=== PATIENT | female | born 1960 | race Caucasian/White ===

== ENCOUNTER 2024-07-06 13:30 | Emergency (ER) | payer SELFPAY ==
[2024-07-06] MEDS ORDERED: Acetaminophen 500 MG TAB ONE (15:24)
[2024-07-06 15:32] LABS: #Basophils 0.05 10x3/uL (0.0-0.2); %Basophils 1.1 % (0.0-1.0); %Eosinophils 2.2 % (0.0-10.0); %Lymphocytes 34.9 % (21.0-51.0); %Monocytes 8.1 % (0.0-10.0); %Neutrophils 53.5 % (42.0-75.0); Hematocrit 42.1 % (36.0-47.0); Hemoglobin 13.9 g/dL (12.0-16.0); Mean Corpuscular Hemoglobin 31.3 pg (27.0-31.0); Mean Corpuscular Volume 94.8 fL (78.0-98.0); Mean Platelet Volume 10.7 fL (7.4-10.4); Platelet Count 204 10x3/uL (130-400); RBC Distribution Width 12.8 % (11.5-14.5); Red Blood Cell (RBC) Count 4.44 mill/uL (4.20-5.40)
[2024-07-06 15:45] LABS: INR-International Normal Ratio 1.1; Prothrombin Time 13.8 sec (12.0-14.7)
[2024-07-06 15:46] LABS: PTT 33.8 sec (22.9-36.1)
[2024-07-06 16:01] LABS: CRP,High Sensitivity (Inhouse) 0.49 mg/dL (< or = 0.5)
[2024-07-06 16:02] LABS: ALT (SGPT) 31 U/L (8-55); AST (SGOT) 31 U/L (5-34); Albumin 3.8 g/dL (3.4-4.8); Alkaline Phosphatase 151 U/L (40-110); Anion Gap 14 mmol/L (10-20); BUN (Urea Nitrogen) 12 mg/dL (9.8-20.1); Bilirubin, Total 0.2 mg/dL (0.2-1.2); Calc. Creatinine Clearance 0 mL/min (70-130); Calcium 9.3 mg/dL (7.8-10.44); Carbon Dioxide 21 mmol/L (23-31); Chloride 110 mmol/L (98-107); Estimated GFR 75; Globulin 3.3 g/dL (2.4-3.5); Glucose 89 mg/dL (80-115); Potassium 4.5 mmol/L (3.5-5.1); Protein, Total 7.1 g/dL (5.8-8.1); Sodium 140 mmol/L (136-145)
[2024-07-06 16:07] LABS: Troponin I Less than 0.010 ng/mL (< 0.028)
== END 2024-07-06 17:27 | disposition home or self-care (01) ==
LOC: ERS 13:30
DX: G50.0 Trigeminal neuralgia (principal); Z55.6 Problems related to health literacy; Z87.891 Personal history of nicotine dependence
CPT/HCPCS: 36415; 70450; 70496; 70498; 80053; 84443; 84484; 85025; 85610; 85730; 86141; 93005

== ENCOUNTER 2025-04-10 13:42 | Emergency (ER) | payer OTHER ==
[2025-04-10] MEDS ORDERED: diphenhydrAMINE 50 MG/ML VIAL ONE (14:58)
[2025-04-10] MEDS ORDERED: Droperidol 5 MG/2 ML VIAL ONE (14:59)
[2025-04-10 16:18] LABS: #Basophils Less than 0.03 10x3/uL (0.0-0.2); #Eosinophils Less than 0.03 10x3/uL (0.0-0.7); #Monocytes 0.24 10x3/uL (0.11-0.59); #Neutrophils 7.98 10x3/uL (1.40-6.50); %Basophils 0.1 % (0.0-1.0); %Eosinophils 0.0 % (0.0-10.0); %Lymphocytes 10.5 % (21.0-51.0); %Monocytes 2.6 % (0.0-10.0); %Neutrophils 86.2 % (42.0-75.0); Hematocrit 42.7 % (36.0-47.0); Hemoglobin 14.4 g/dL (12.0-16.0); Mean Corpuscular Hemoglobin 31.6 pg (27.0-31.0); Mean Corpuscular Volume 93.6 fL (78.0-98.0); Platelet Count 286 10x3/uL (130-400); Red Blood Cell (RBC) Count 4.56 mill/uL (4.20-5.40); White Blood Cell (WBC) Count 9.26 10x3/uL (4.8-10.8)
[2025-04-10 16:21] LABS: Bacteria/HPF None Seen HPF (None Seen); CAUTI Indications for Culture Acute Hematuria; Glucose, Urine (Dipstick) Normal (Negative); Leukocyte Negative Leu/uL (Negative); Protein, Urine (Dipstick) Negative (Neg-Trace); RBC/HPF 0-3 HPF (0-3); Specific Gravity, Urine 1.011 (1.002-1.036); WBC/HPF 0-3 HPF (0-3)
[2025-04-10 16:29] LABS: Urine Culture Reflex No No
[2025-04-10 16:34] LABS: ALT (SGPT) 43 U/L (Less than 34); AST (SGOT) 24 U/L (11-34); Albumin 4.0 g/dL (3.1-4.5); Alkaline Phosphatase 135 U/L (40-110); Anion Gap 17 mmol/L (10-20); BUN (Urea Nitrogen) 20 mg/dL (9.8-20.1); Bilirubin, Total 0.4 mg/dL (0.3-1.2); Calc. Creatinine Clearance 0 mL/min (70-130); Calcium 9.5 mg/dL (7.8-10.44); Carbon Dioxide 19 mmol/L (23-31); Chloride 107 mmol/L (98-107); Globulin 3.5 g/dL (2.4-3.5); Glucose 135 mg/dL (80-115); Lipase 21 U/L (8-78); Potassium 3.8 mmol/L (3.5-5.1); Sodium 139 mmol/L (136-145)
== END 2025-04-10 18:02 | disposition home or self-care (01) ==
LOC: ERS 13:42
DX: T78.40XA Allergy, unspecified, initial encounter (principal); K59.00 Constipation, unspecified; R51.9 Headache, unspecified; Z87.891 Personal history of nicotine dependence
CPT/HCPCS: 70450; 74176; 80053; 81001; 83605; 83690; 85025; J1200; J1790; 96374; 96375